=== PATIENT | female | born 1975 | race Caucasian/White ===

== ENCOUNTER 2017-02-08 21:19 | Emergency (ER) | payer OTHER ==
[~2017-02-08] VITALS: Ht 167.6 cm; Wt 82.8 kg
[~2017-02-08 21:19] MED LIST: ALPRAZOLAM0.25 M2 PO; ATARAX,VISTARIL25 MG PO; ATARAX,VISTARIL50 MG PO; DEPO-PROVER150 MG/ML IM; FLEXERIL10 MG PO; MEGACE40 MG PO; MOTRIN800 MG PO; NAPROSYN500 MG PO; PERCOCET 5/31 TABLET PO; PREDNISONE20 MG PO; PREDNISONE50 MG PO; TRAZODONE HCL50 MG PO; VENTOLIN HFA18 GM IH; WELLBUTRIN SR150 MG PO; ZANTAC300 MG PO
[2017-02-08 21:50] LABS: HEMATOCRIT 37.9 % (36.0-46.0); MCH 31.3 PG (29.0-34.0); MEAN PLAT.VOLUME 10.9 uM^3 (9.5-12.4); PLATELET COUNT 236 K/uL (156-360); RBC DIS.WIDTH-CV 12.4 % (11.8-14.6); RBC DIS.WIDTH-SD 43.6 % (39-53); RED BLOOD COUNT 3.99 M/uL (3.80-5.20); WHITE BLOOD COUNT 8.2 K/uL (4.1-10.2)
[2017-02-08 21:58] LABS: CHLORIDE 110 mEq/L (99-109); POTASSIUM 3.8 mEq/L (3.7-5.4); SODIUM 143 mEq/L (136-147)
[2017-02-08 21:59] LABS: GLUCOSE 103 mg/dL (70-99)
[2017-02-08 22:01] LABS: ANION GAP 9 MEQ/L (2-14)
[2017-02-08 22:03] LABS: GFR ESTIMATE (CALCULATED) > 59 mL/min/
[2017-02-08 22:04] LABS: UREA NITROGEN (BUN) 14 mg/dL (9-23)
[2017-02-08 22:11] LABS: TROP-I INTERPRETATION NEGATIVE; TROPONIN-I < 0.01 ng/mL (0.0-0.30)
[2017-02-09 01:01] LABS: TROP-I INTERPRETATION NEGATIVE; TROPONIN-I < 0.01 ng/mL (0.0-0.30)
[2017-02-09] MEDS ORDERED: DEXILANT30 MG PO (01:22)
[2017-02-09] MEDS ORDERED: CARAFATE1 GM PO (01:22)
[2017-02-09 01:27] VITALS: BP 124/82
== END 2017-02-09 01:32 | disposition home or self-care (01) ==
LOC: EME 21:19
PROVIDERS: Physician Assistant
DX: K21.9 Gastro-esophageal reflux disease without esophagitis (principal); F41.9 Anxiety disorder, unspecified; F32.9 Major depressive disorder, single episode, unspecified; F17.200 Nicotine dependence, unspecified, uncomplicated
CPT/HCPCS: 71020; 80048; 84484; 85027; 93005; 99281; 99285